=== PATIENT | female | born 1990 | race African-American/Black ===

== ENCOUNTER 2018-09-27 07:26 | Inpatient (IN) ==
[2018-09-27] MEDS ORDERED: BUTORPHANOL 2 MG/ML VIAL IV PRN (07:49)
[2018-09-27] MEDS ORDERED: ONDANSETRON 4 MG/2 ML VIAL IV PRN (07:49)
[2018-09-27] MEDS ORDERED: LACTATED RINGERS 1,000 ML IV PRN (07:49)
[2018-09-27 08:14] LABS: Basophils # 0.1 10*3/uL (0.0-0.2); Basophils % 0.6 % (0.0-0.8); Eosinophils # 0.2 10*3/uL (0.0-0.87); Eosinophils % 1.2 % (0.00-10.9); Hemoglobin 11.6 GM/DL (12.0-16.0); Immature Granulocytes % 0.7 %; Immature Granulocytes Absolute 0.09 #; Lymphocytes # 2.2 10*3/uL (1.4-4.0); Lymphocytes % 16.8 % (21.3-54.2); Mean Corpuscular HGB Conc 33.1 GM/DL (32-36); Mean Platelet Volume 10.7 FL (9.6-12.0); Monocytes % 8.4 % (1.7-12.7); Neutrophils % 72.3 % (38.7-73.9); Platelet Count 189 T/CUMM (130-400); Red Blood Count 3.89 MC/CUMM (3.8-5.5); Red Cell Distribution Width 13.7 % (9.3-17.3); White Blood Count 12.8 T/CUMM (4-12)
[2018-09-27] MEDS: OXYTOCIN/LR 20 UNIT/1,000 ML BAG IV SCH ×2 (08:14→19:16)
[2018-09-27] MEDS ORDERED: diphenhydrAMINE 50 MG/1 ML VIAL IV PRN ×2 (10:32)
[2018-09-27] MEDS ORDERED: ONDANSETRON 4 MG/2 ML VIAL IV ONE (10:32)
[2018-09-27] MEDS ORDERED: ePHEDrine 50 MG/ML AMP IV PRN (10:32)
[2018-09-27] MEDS ORDERED: NALOXONE 0.4 MG/ML VIAL IV PRN (10:32)
[2018-09-27] MEDS ORDERED: PROMETHAZINE 25 MG/1 ML VIAL IM ONE (10:32)
[2018-09-27] MEDS ORDERED: LACTATED RINGERS 1,000 ML IV ONE (10:35)
[2018-09-27] MEDS ORDERED: CITRIC ACID/SODIUM CITRATE 30 ML UDCUP PO ONE (10:35)
[2018-09-27] MEDS ORDERED: FAMOTIDINE 20 MG/2 ML VIAL IV ONE (10:35)
[2018-09-27] MEDS: LACTATED RINGERS 1,000 ML IV SCH ×2 (10:47→13:35)
[2018-09-27] MEDS ORDERED: fentaNYL 2 MCG/ROPIV 0.2% EPID 100 ML EPIDURAL SCH (11:00)
[2018-09-27 12:45] LABS: Apearance,Urine CLEAR (Clear); Bilirubin,Urine Negative (Negative); Blood, Urine Negative (Negative); Glucose,Urine (UA) Negative (Negative); Ketones,Urine 5 mg/dL (Negative); Mucus,Urine Occasional /LPF (Occasional); Nitrite,Urine Negative (Negative); Protein,Urine Negative; RBC,Urine <1 /HPF (0-4); Squamous Epithelial Cell,Urine Occasional /HPF (0-10); Urine Color Straw (Yellow); Urine Specific Gravity 1.006 (1.001-1.035); Urine Urobilinogen < 2.0 EU/DL (0.2-1.0)
[2018-09-27] MEDS ORDERED: miSOPROStol 200 MCG TABLET ONE (17:24)
[2018-09-27] MEDS ORDERED: METHYLERGONOVINE 0.2 MG/1 ML AMP ONE (17:25)
[2018-09-27] MEDS ORDERED: CARBOPROST TROMETHAMINE 250 MCG/ML AMP IM ONE (17:25)
[2018-09-27] MEDS: IBUPROFEN 800 MG TABLET PO PRN (23:43)
[2018-09-28 05:40] LABS: Basophils # 0.1 10*3/uL (0.0-0.2); Basophils % 0.6 % (0.0-0.8); Eosinophils # 0.2 10*3/uL (0.0-0.87); Eosinophils % 1.4 % (0.00-10.9); Hematocrit 31.1 VOL% (35.7-47.0); Hemoglobin 10.2 GM/DL (12.0-16.0); Immature Granulocytes % 0.6 %; Immature Granulocytes Absolute 0.07 #; Lymphocytes # 2.1 10*3/uL (1.4-4.0); Lymphocytes % 17.3 % (21.3-54.2); Mean Corpuscular HGB Conc 32.8 GM/DL (32-36); Mean Corpuscular Volume 92.3 FL (87-102); Monocytes % 9.2 % (1.7-12.7); Neutrophils % 70.9 % (38.7-73.9); Platelet Count 147 T/CUMM (130-400); Red Blood Count 3.37 MC/CUMM (3.8-5.5); Red Cell Distribution Width 13.8 % (9.3-17.3); White Blood Count 11.9 T/CUMM (4-12)
[2018-09-28] MEDS: IBUPROFEN 800 MG TABLET PO PRN ×2 (07:57→16:39)
[2018-09-28] MEDS: DOCUSATE SODIUM 100 MG CAPSULE PO SCH ×2 (07:57→15:52)
[2018-09-29] MEDS: IBUPROFEN 800 MG TABLET PO PRN (04:48)
[2018-09-29 15:25] VITALS: BP 99/59
== END 2018-09-29 15:15 | disposition home or self-care (01) | DRG 560 ==
LOC: N.LDOUT 07:26 → N.LD 07:27 → N.OB 21:50
PROVIDERS: ADMIT Obstetrics & Gynecology; ATTEND Obstetrics & Gynecology